=== PATIENT | female | born 1990 | race Caucasian/White ===

== ENCOUNTER 2018-07-09 14:00 | Inpatient (IN) | payer SELFPAY ==
[~2018-07-09] VITALS: Ht 163 cm; Wt 55.8 kg
[~2018-07-09 14:00] MED LIST: HYDROCORTISONE 0.5%, 28.35 GM TOPICAL CREAM TP ONE; MINERAL OIL 30 ML UDC PO ONE; ROPIVACAINE 40 MG/20 ML AMP EP ONE
[2018-07-09] MEDS ORDERED: LR 1,000 ML IV ONE (14:34)
[2018-07-09] MEDS ORDERED: LR 1,000 ML IV SCH (14:34)
[2018-07-09] MEDS ORDERED: OXYTOCIN/0.9 % SODIUM CHLORIDE 1,000 ML IV SCH (14:34)
[2018-07-09] MEDS ORDERED: NALBUPHINE HCL 10 MG/ML AMP IVP PRN (14:45)
[2018-07-09] MEDS ORDERED: TERBUTALINE SULFATE 1 MG/ML VIAL SUBCUT ONE (14:45)
[2018-07-09 15:09] LABS: BASOPHILS % (AUTO) 0.3 % (0.0-2.0); EOSINOPHILS % (AUTO) 0.2 % (0.0-4.0); HEMATOCRIT 31.6 % (36-48); HEMOGLOBIN 10.5 g/dL (12.0-16.0); LYMPHOCYTES # (AUTO) 1.5 K/uL (1.0-5.5); LYMPHOCYTES % (AUTO) 17.9 % (20.5-51.5); MEAN CORPUSCULAR HEMOGLOBIN 32 pg (27-31); MEAN CORPUSCULAR HGB CONC 33 % (32-36); MEAN CORPUSCULAR VOLUME 97 fL (79.0-98.0); MONOCYTES # (AUTO) 0.5 K/uL (0.0-1.0); MONOCYTES % (AUTO) 5.6 % (1.7-9.3); NEUTROPHILS # (AUTO) 6.6 K/uL (1.8-7.7); PLATELET COUNT (AUTO) 113 K/uL (130-430); RED BLOOD CELL COUNT(AUTO) 3.27 MIL/uL (4.2-6.2); RED CELL DISTRIBUTION WIDTH 12.9 % (9.0-15.0); WHITE BLOOD COUNT (AUTO) 8.6 K/uL (4.8-10.8)
[2018-07-09] MEDS: CLINDAMYCIN 900 mg/50mL D5W 50 ML IV SCH ×2 (15:34→23:25)
[2018-07-09 15:44] VITALS: BP_SYST 125
[2018-07-09] MEDS ORDERED: fentaNYL CITRATE/PF 100 MCG/2 ML AMP ONE (16:46)
[2018-07-09] MEDS ORDERED: ROPIVACAINE 0.2% 100 ML ONE (16:47)
[2018-07-09] MEDS ORDERED: LR 500 ML IV ONE (17:26)
[2018-07-09] MEDS ORDERED: fentaNYL CITRATE/PF 100 MCG/2 ML AMP EP ONE (17:30)
[2018-07-09] MEDS ORDERED: FENT2mCg/mL-ROPIVA0.2%/NS EPID 100 ML EP SCH (17:30)
[2018-07-09] MEDS ORDERED: ePHEDrine sulfate 50 MG/ML VIAL IVP PRN (17:30)
[2018-07-10] MEDS ORDERED: OXYTOCIN/0.9 % SODIUM CHLORIDE 1,000 ML IV SCH (01:04)
[2018-07-10] MEDS ORDERED: OXYTOCIN/0.9 % SODIUM CHLORIDE 1,000 ML IV ONE (01:04)
[2018-07-10] MEDS ORDERED: LANOLIN 7 GM OINT. TP PRN (01:15)
[2018-07-10] MEDS ORDERED: HYDROCORTISONE 0.5%, 28.35 GM TOPICAL CREAM TP PRN (01:15)
[2018-07-10] MEDS ORDERED: HYDROcodone/ACETAMIN 5-325 MG TAB (NORCO/ VICODIN) PO PRN (01:15)
[2018-07-10] MEDS ORDERED: ANUSOL 1 EA SUPP.RECT (PREPARATION H) RC PRN (01:15)
[2018-07-10] MEDS ORDERED: SENNOSIDES/DOCUSATE SODIUM 1 TAB TABLET(SENOKOT-S) PO PRN (01:15)
[2018-07-10] MEDS ORDERED: WITCH HAZEL LEAF 1 MED.PAD MED.PAD TP PRN (01:15)
[2018-07-10] MEDS ORDERED: OXYCODONE/ACETAMINOPHEN 5-325 TABLET PO PRN (01:15)
[2018-07-10] MEDS ORDERED: DERMOPLAST SPRAY TP PRN (01:15)
[2018-07-10] MEDS ORDERED: METHYLERGONOVINE MALEATE 0.2 MG TABLET PO PRN (01:15)
[2018-07-10] MEDS ORDERED: IBUPROFEN 600 MG TABLET PO SCH (01:30)
[2018-07-10] MEDS: IBUPROFEN 600 MG TABLET PO SCH ×3 (05:51→23:40)
[2018-07-10] MEDS: DOCUSATE SODIUM 100 MG CAPSULE PO PRN ×2 (05:52→18:05)
[2018-07-10 06:35] LABS: HEMOGLOBIN 7.8 g/dL (12.0-16.0)
[2018-07-10 06:51] LABS: HEMATOCRIT 22.7 % (36-48); MEAN CORPUSCULAR HEMOGLOBIN 33 pg (27-31); MEAN CORPUSCULAR HGB CONC 34 % (32-36); MEAN CORPUSCULAR VOLUME 96 fL (79.0-98.0); PLATELET COUNT (AUTO) 105 K/uL (130-430); RED BLOOD CELL COUNT(AUTO) 2.37 MIL/uL (4.2-6.2); WHITE BLOOD COUNT (AUTO) 17.6 K/uL (4.8-10.8)
[2018-07-10 07:41] LABS: ATYPICAL LYMPHOCYTES % 0 % (0-0); BAND % (MANUAL) 0 % (0-6); LYMPHOCYTES % (MANUAL) 15 % (20-46); MONOCYTES % (MANUAL) 1 % (0-11)
[2018-07-10 07:42] LABS: BASOPHILS % (MANUAL) 0 % (0-2); EOSINOPHILS % (MANUAL) 0 % (0-7)
[2018-07-11] MEDS: OXYCODONE/ACETAMINOPHEN 5-325 TABLET PO PRN ×2 (12:06→14:10)
[2018-07-11] MEDS: IBUPROFEN 600 MG TABLET PO SCH (12:07)
== END 2018-07-11 14:17 | disposition home or self-care (01) | DRG 775 ==
LOC: SPU 14:00
PROVIDERS: ADMIT Obstetrics & Gynecology; ATTEND Obstetrics & Gynecology
PROC: 10E0XZZ Delivery of Products of Conception, External Approach (ICD-10-PCS; principal; 2018-07-09)
PROC: 0W8NXZZ Division of Female Perineum, External Approach (ICD-10-PCS; 2018-07-09)
PROC: 3E0R3BZ Introduction of Anesthetic Agent into Spinal Canal, Percutaneous Approach (ICD-10-PCS; 2018-07-09)
PROC: 00HU33Z Insertion of Infusion Device into Spinal Canal, Percutaneous Approach (ICD-10-PCS; 2018-07-09)
DX: O99.824 Streptococcus B carrier state complicating childbirth (principal); Z3A.39 39 weeks gestation of pregnancy; Z37.0 Single live birth
CPT/HCPCS: 36415; 81002-TC; 85007; 85025; 85027; 86886; 86900; 86901; J2590; J2795; J3010; J3490; J7120